=== PATIENT | male | born 1960 ===

== ENCOUNTER 2018-08-05 14:27 | Emergency (ER) | payer MEDICAID ==
[~2018-08-05] VITALS: Ht 170.2 cm; Wt 62.7 kg
[2018-08-05 14:33] VITALS: BP 144/99
== END 2018-08-05 15:40 | disposition home or self-care (01) ==
LOC: ED 15:15
DX: H04.411 Chronic dacryocystitis of right lacrimal passage (principal)
CPT/HCPCS: 99283

== ENCOUNTER 2019-06-15 09:12 | Emergency (ER) | payer MEDICAID ==
[~2019-06-15] VITALS: Ht 170.2 cm; Wt 62.3 kg
[2019-06-15 09:31] VITALS: BP 129/82
== END 2019-06-15 10:32 | disposition home or self-care (01) ==
LOC: ED 10:23
DX: M62.541 Muscle wasting and atrophy, not elsewhere classified, right hand (principal)
CPT/HCPCS: 99283

== ENCOUNTER 2019-07-27 11:35 | Emergency (ER) | payer MEDICAID ==
[~2019-07-27] VITALS: Ht 170.2 cm; Wt 62.1 kg
[2019-07-27 11:57] VITALS: BP 122/84
--- NOTE | 2019-07-27 12:05 | NUR ---
PT HERE FOR LOWER BACK PAIN, MIDLINE X 8 DAYS, STATED IT INITIALLY STARTED IN LEG/HIP ON RIGHT SIDE AND HAS NOW MOVED TO MIDLINE SPINE. DENIES TRAUMA OR BACK SURGERY.
[2019-07-27] MEDS ORDERED: HYDROcodone/APAP 5/325 TABLET ONE (12:11)
[2019-07-27] MEDS ORDERED: METHOCARBAMOL 750 MG TABLET ONE (12:11)
[2019-07-27] MEDS ORDERED: KETOROLAC 30 MG/1 ML ONE (12:11)
[2019-07-27] MEDS ORDERED: ONDANSETRON ODT 4 MG ONE (12:11)
[2019-07-27] MEDS ORDERED: ONDANSETRON ODT 4 MG PO ONE (12:30)
[2019-07-27] MEDS ORDERED: KETOROLAC 30 MG/1 ML IM ONE (12:30)
[2019-07-27] MEDS ORDERED: HYDROcodone/APAP 5/325 TABLET PO ONE (12:30)
[2019-07-27] MEDS ORDERED: METHOCARBAMOL 750 MG TABLET PO ONE (12:30)
--- NOTE | 2019-07-27 12:50 | NUR ---
Patient/Caregiver given discharge instructions and they have confirmed that they understand the instructions. Patient ambulatory with steady gait.
== END 2019-07-27 12:52 | disposition home or self-care (01) ==
LOC: ED 12:39
DX: S39.012A Strain of muscle, fascia and tendon of lower back, initial encounter (principal); F17.200 Nicotine dependence, unspecified, uncomplicated; X50.9XXA Other and unspecified overexertion or strenuous movements or postures, initial encounter; Y93.89 Activity, other specified; Y92.89 Other specified places as the place of occurrence of the external cause; Y99.8 Other external cause status
CPT/HCPCS: 72110; 96372; 99284; J1885; Q0162

== ENCOUNTER 2020-09-10 14:21 | Emergency (ER) | payer MEDICAID ==
[~2020-09-10] VITALS: Ht 170.2 cm; Wt 63.3 kg
[2020-09-10 14:29] VITALS: BP 130/81
--- NOTE | 2020-09-10 15:21 | NUR ---
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
--- NOTE | 2020-09-10 16:45 | NUR ---
Patient/Caregiver given discharge instructions and they have confirmed that they understand the instructions. Patient ambulatory with steady gait.
== END 2020-09-10 16:47 | disposition home or self-care (01) ==
LOC: ED 15:31
DX: J01.00 Acute maxillary sinusitis, unspecified (principal); B97.89 Other viral agents as the cause of diseases classified elsewhere; R09.81 Nasal congestion; H57.11 Ocular pain, right eye; F17.200 Nicotine dependence, unspecified, uncomplicated
CPT/HCPCS: 99282